=== PATIENT | male | born 1940 | race Caucasian/White ===

== ENCOUNTER → 2019-08-28 | Outpatient (REF) | payer MEDICARE ==
[2019-08-28 12:11] LABS: BASO % 0.4 % (0.0-1.0); EOS # 0.2 10^3/uL (0.0-0.5); EOS % 2.3 % (0.0-3.0); HEMATOCRIT 42.1 % (42.0-52.0); HEMOGLOBIN 14.4 g/dl (13.5-17.5); LYMPH # 2.3 10^3/uL (1.5-5.0); LYMPH % 32.5 % (24.0-44.0); MEAN CORPUSCULAR HEMOGLOBIN 33.3 pg (27.0-33.0); MEAN CORPUSCULAR HGB CONC 34.2 g/dl (32.0-36.5); MEAN CORPUSCULAR VOLUME 97.5 fl (80.0-96.0); MONO # 0.5 10^3/uL (0.0-0.8); MONO % 7.1 % (0.0-5.0); PLATELET COUNT, AUTOMATED 133 10^3/uL (150-450); RED BLOOD COUNT 4.32 10^6/uL (4.30-6.10)
[2019-08-28 12:52] LABS: ALBUMIN 3.9 GM/DL (3.2-5.2); BILIRUBIN,TOTAL 0.8 MG/DL (0.2-1.0); CALCIUM LEVEL 9.5 MG/DL (8.8-10.2); CHOLESTEROL RISK RATIO 4.2 (<5); CREATININE FOR GFR 1.31 MG/DL (0.70-1.30); GLOMERULAR FILTRATION RATE 56.3 (>42); POTASSIUM SERUM 3.9 MEQ/L (3.5-5.1); THYROID STIMULATING HORMONE 0.949 uIU/ML (0.358-3.740); TOTAL 25(OH) VITAMIN D 18.6 NG/ML (30.0-100.0); TOTAL PROTEIN 7.4 GM/DL (6.4-8.2)
[2019-08-28 13:09] LABS: HEMOGLOBIN A1c 5.3 %
== END ==
LOC: M LAB REF 11:39
PROVIDERS: ATTEND Family Medicine
DX: E11.65 Type 2 diabetes mellitus with hyperglycemia (principal)

== ENCOUNTER → 2019-11-14 | Outpatient (REF) | payer MEDICARE ==
[2019-11-14 13:24] LABS: ALBUMIN 3.8 GM/DL (3.2-5.2); BILIRUBIN,TOTAL 0.6 MG/DL (0.2-1.0); CALCIUM LEVEL 9.1 MG/DL (8.8-10.2); CHOLESTEROL RISK RATIO 3.725 (<5); CREATININE FOR GFR 1.38 MG/DL (0.70-1.30); GLOMERULAR FILTRATION RATE 53.1 (>42); POTASSIUM SERUM 4.5 MEQ/L (3.5-5.1); THYROID STIMULATING HORMONE 1.07 uIU/ML (0.358-3.740); TOTAL PROTEIN 7.3 GM/DL (6.4-8.2)
[2019-11-14 13:41] LABS: TOTAL 25(OH) VITAMIN D 19.6 NG/ML (30.0-100.0)
== END ==
LOC: M LAB REF 12:15
PROVIDERS: ATTEND Family Medicine Addiction Medicine
DX: E11.65 Type 2 diabetes mellitus with hyperglycemia (principal)

== ENCOUNTER → 2020-01-13 | Outpatient (CLI) | payer SELFPAY | LOC: M LABSMTC 15:40 | PROVIDERS: ATTEND Pediatrics | DX: Z20.828 Contact with and (suspected) exposure to other viral communicable diseases (principal) ==

== ENCOUNTER → 2020-02-14 | Outpatient (REF) | payer MEDICARE ==
[2020-02-14 17:57] LABS: ALBUMIN 3.7 GM/DL (3.2-5.2); BILIRUBIN,TOTAL 0.6 MG/DL (0.2-1.0); CALCIUM LEVEL 8.8 MG/DL (8.8-10.2); CHOLESTEROL RISK RATIO 3.074 (<5); CREATININE FOR GFR 1.7 MG/DL (0.70-1.30); GLOMERULAR FILTRATION RATE 41.7 (>42); POTASSIUM SERUM 4.9 MEQ/L (3.5-5.1); THYROID STIMULATING HORMONE 1.12 uIU/ML (0.358-3.740); TOTAL 25(OH) VITAMIN D 43.4 NG/ML (30.0-100.0); TOTAL PROTEIN 6.7 GM/DL (6.4-8.2)
== END ==
LOC: M LAB REF 16:32
PROVIDERS: ATTEND Family Medicine Addiction Medicine
DX: E55.9 Vitamin D deficiency, unspecified (principal); E11.65 Type 2 diabetes mellitus with hyperglycemia

== ENCOUNTER → 2020-03-20 | Outpatient (REF) | payer MEDICARE ==
[2020-03-20 17:25] LABS: CALCIUM LEVEL 9.2 MG/DL (8.8-10.2); CREATININE FOR GFR 1.32 MG/DL (0.70-1.30); GLOMERULAR FILTRATION RATE 55.7 (>42); POTASSIUM SERUM 4.7 MEQ/L (3.5-5.1)
== END ==
LOC: M LAB REF 16:27
PROVIDERS: ATTEND Family Medicine Addiction Medicine
DX: I10 Essential (primary) hypertension (principal)

== ENCOUNTER → 2020-06-09 | Outpatient (REF) | payer MEDICARE ==
[2020-06-09 17:47] LABS: ALBUMIN 3.7 GM/DL (3.2-5.2); ALT/SGPT 15 U/L (12-78); BLOOD UREA NITROGEN 22 MG/DL (7-18); CALCIUM LEVEL 9.4 MG/DL (8.8-10.2); CARBON DIOXIDE LEVEL 30 MEQ/L (21-32); CHLORIDE LEVEL 107 MEQ/L (98-107); CHOLESTEROL LEVEL 152 MG/DL (<200); CHOLESTEROL RISK RATIO 2.533 (<5); CREATININE FOR GFR 1.04 MG/DL (0.70-1.30); GLOMERULAR FILTRATION RATE > 60.0 (>42); GLUCOSE, FASTING 95 MG/DL (70-100); HDL CHOLESTEROL 60 MG/DL (>40); LDL CHOLESTEROL 69 MG/DL (<100); NON-HDL-C 92 MG/DL; POTASSIUM SERUM 4.5 MEQ/L (3.5-5.1); SODIUM LEVEL 143 MEQ/L (136-145); THYROID STIMULATING HORMONE 0.608 uIU/ML (0.358-3.740); TOTAL PROTEIN 7.2 GM/DL (6.4-8.2); TRIGLYCERIDES LEVEL 113 MG/DL (<150)
[2020-06-09 18:14] LABS: HEMOGLOBIN A1c 5.3 %
== END ==
LOC: M LAB REF 16:20
PROVIDERS: ATTEND Family Medicine Addiction Medicine
DX: E11.69 Type 2 diabetes mellitus with other specified complication (principal)

== ENCOUNTER 2021-11-04 13:26 | Inpatient (IN) | payer MEDICARE ==
[~2021-11-04] VITALS: Ht 188 cm; Wt 112.8 kg
[2021-11-04] MEDS ORDERED: NS 3,070 ML in IV 1 EA IV ONE (13:50)
[2021-11-04] MEDS ORDERED: cefTRIAXone SOD 2 GM in D5W MINI-BAG PLUS 50 ML IV ONE (13:50)
[2021-11-04 14:06] LABS: HEMOGLOBIN 13.1 g/dl (13.5-17.5); MEAN CORPUSCULAR HEMOGLOBIN 33.5 pg (27.0-33.0); MEAN CORPUSCULAR HGB CONC 34.5 g/dl (32.0-36.5); MEAN CORPUSCULAR VOLUME 97.2 fl (80.0-96.0); PLATELET COUNT, AUTOMATED 152 10^3/uL (150-450); RED BLOOD COUNT 3.91 10^6/uL (4.30-6.10); WHITE BLOOD COUNT 29.9 10^3/uL (4.0-10.0)
[2021-11-04 14:50] LABS: ATYPICAL LYMPH 1 % (0-5); LYMPHOCYTES 1 % (16-44); MONOCYTES 2 % (0-5); NEUTROPHILS 51 % (28-66); PLATELET ESTIMATE NORMAL (NORMAL)
[2021-11-04 14:59] LABS: ACETAMINOPHEN LEVEL < 2.0 UG/ML (10.0-30.0); ALBUMIN 3.4 GM/DL (3.2-5.2); ALT/SGPT 40 U/L (12-78); BILIRUBIN,DIRECT 1.3 MG/DL (0.0-0.2); BILIRUBIN,TOTAL 3.9 MG/DL (0.2-1.0); BLOOD UREA NITROGEN 34 MG/DL (7-18); CALCIUM LEVEL 8.9 MG/DL (8.8-10.2); CARBON DIOXIDE LEVEL 21 MEQ/L (21-32); CHLORIDE LEVEL 104 MEQ/L (98-107); CREATININE FOR GFR 1.94 MG/DL (0.70-1.30); ETHYL ALCOHOL (ETHANOL) < 0.003 % (0.000-0.010); GLOMERULAR FILTRATION RATE 35.6 (>35); GLUCOSE, FASTING 119 MG/DL (70-100); POTASSIUM SERUM 4.5 MEQ/L (3.5-5.1); SALICYLATE LEVEL < 1.7 MG/DL (5.0-30.0); SODIUM LEVEL 135 MEQ/L (136-145); TOTAL PROTEIN 7.2 GM/DL (6.4-8.2)
[2021-11-04 15:00] LABS: CK-MB VALUE MASS 5.3 NG/ML (<3.6); MB/CK RELATIVE INDEX 0.27 (< OR =4)
[2021-11-04 15:07] LABS: OSMOLALITY SERUM 299 MOSM/KG (280-301)
[2021-11-04 15:31] LABS: AMPHETAMINES LEVEL URINE NEGATIVE (NEGATIVE); BARBITURATES URINE NEGATIVE (NEGATIVE); BENZODIAZEPINES URINE NEGATIVE (NEGATIVE); CANNABINOIDS URINE NEGATIVE (NEGATIVE); COCAINE METABOLITE URINE NEGATIVE (NEGATIVE); METHADONE URINE NEGATIVE (NEGATIVE); OPIATES URINE NEGATIVE (NEGATIVE); PHENCYCLIDINE URINE NEGATIVE (NEGATIVE)
[2021-11-04] MEDS ORDERED: ACETAMINOPHEN TAB 650MG DOSE (2X325MG) PO ONE (15:50)
[2021-11-04 16:47] LABS: CK-MB VALUE MASS 5.7 NG/ML (<3.6); MB/CK RELATIVE INDEX 0.27 (< OR =4)
[2021-11-04] MEDS ORDERED: VANCOMYCIN HCL 2,000 MG in D5W 500 ML IV ONE (17:00)
[2021-11-04] MEDS ORDERED: VANCOMYCIN HCL 1,000 MG, VIAL MATE ADAPTER 1 EACH in NS 250 ML IV ONE ×6 (17:30)
[2021-11-04 18:37] LABS: CK-MB VALUE MASS 4.7 NG/ML (<3.6); MB/CK RELATIVE INDEX 0.23 (< OR =4)
[2021-11-04] MEDS ORDERED: NALOXONE INJ 0.4MG/1ML VIAL (J2310 PER 1MG) IV PRN (19:00)
[2021-11-04] MEDS ORDERED: PERCOCET 5MG/325MG TAB PO ONE (19:00)
[2021-11-04] MEDS ORDERED: ACETAMINOPHEN 500 MG TAB PO ONE (19:00)
[2021-11-04] MEDS ORDERED: PERCOCET 5MG/325MG TAB PO PRN ×3 (19:00)
[2021-11-04] MEDS ORDERED: HOME MED LIST COMPLETE! XX SCH (19:05)
[2021-11-04] MEDS ORDERED: AMLO1TAB25 PO (19:05)
[2021-11-04] MEDS ORDERED: LOVA20TA2 PO (19:05)
[2021-11-04] MEDS ORDERED: pt comment (19:05)
[2021-11-04 20:10] VITALS: BP 126/80
[2021-11-04] MEDS: LIDOCAINE 5% (LIDODERM) PATCH TD SCH (20:27)
[2021-11-04] MEDS: HEPARIN SOD (PORCINE) 5000UNITS/ML 1ML VIAL/SYRINGE SQ SCH (20:27)
[2021-11-04] MEDS: NS 1,000 ML IV SCH (20:27)
[2021-11-04 22:24] LABS: C REACTIVE PROTEIN QUANTITATIV 23.1 MG/DL (0.00-0.30); CALCIUM LEVEL 7.7 MG/DL (8.8-10.2); CREATININE FOR GFR 1.66 MG/DL (0.70-1.30); GLOMERULAR FILTRATION RATE 42.6 (>35); POTASSIUM SERUM 3.6 MEQ/L (3.5-5.1)
[2021-11-04 22:31] LABS: CK-MB VALUE MASS 4.2 NG/ML (<3.6); MB/CK RELATIVE INDEX 0.16 (< OR =4)
[2021-11-04] MEDS: ANALGESIC BALM CRM 3OZ TOP SCH (22:52)
[2021-11-04 22:54] VITALS: BP 102/58
[2021-11-04] MEDS: PIPERACILLIN/TAZOBACTAM SOD 2.25 GM in D5W MINI-BAG PLUS 50 ML IV SCH (23:01)
[2021-11-05] VITALS (8 sets, daily range): BP systolic 94–122; BP diastolic 46–76; O2SAT 88
[2021-11-05 04:01] LABS: CK-MB VALUE MASS 3.2 NG/ML (<3.6); MB/CK RELATIVE INDEX 0.13 (< OR =4)
[2021-11-05] MEDS: NS 1,000 ML IV SCH ×6 (05:29→19:35)
[2021-11-05] MEDS: PIPERACILLIN/TAZOBACTAM SOD 2.25 GM in D5W MINI-BAG PLUS 50 ML IV SCH ×2 (05:29→12:13)
[2021-11-05] MEDS ORDERED: VANCOMYCIN HCL 1,000 MG, VIAL MATE ADAPTER 1 EACH in NS 250 ML IV SCH (06:00)
[2021-11-05] MEDS ORDERED: HYDROMORPHONE HCL 0.5 MG/ 0.5 ML SYRINGE (J1170 PER 1) IV ONE ×2 (07:15→13:00)
[2021-11-05] MEDS ORDERED: NS 1,000 ML IV ONE (07:20)
[2021-11-05 07:25] LABS: HEMOGLOBIN 11.2 g/dl (13.5-17.5); MEAN CORPUSCULAR HEMOGLOBIN 32.8 pg (27.0-33.0); MEAN CORPUSCULAR HGB CONC 32.9 g/dl (32.0-36.5); MEAN CORPUSCULAR VOLUME 99.7 fl (80.0-96.0); PLATELET COUNT, AUTOMATED 129 10^3/uL (150-450); RED BLOOD COUNT 3.41 10^6/uL (4.30-6.10); WHITE BLOOD COUNT 19.8 10^3/uL (4.0-10.0)
[2021-11-05 07:31] LABS: ALBUMIN 2.5 GM/DL (3.2-5.2); BILIRUBIN,TOTAL 5.7 MG/DL (0.2-1.0); CALCIUM LEVEL 7.8 MG/DL (8.8-10.2); CK-MB VALUE MASS 3.2 NG/ML (<3.6); CREATININE FOR GFR 2.06 MG/DL (0.70-1.30); GLOMERULAR FILTRATION RATE 33.2 (>35); MAGNESIUM LEVEL 1.7 MG/DL (1.8-2.4); MB/CK RELATIVE INDEX 0.13 (< OR =4); TOTAL PROTEIN 5.9 GM/DL (6.4-8.2)
[2021-11-05 08:09] LABS: ATYPICAL LYMPH 3 % (0-5); LYMPHOCYTES 4 % (16-44); METAMYELOCYTES 1 % (0-0); MONOCYTES 2 % (0-5); MYELOCYTES 1 % (0-0); NEUTROPHILS 46 % (28-66)
[2021-11-05 08:10] LABS: GIANT PLATELETS 1+
[2021-11-05 08:11] LABS: PLATELET ESTIMATE DECREASED (NORMAL)
[2021-11-05] MEDS ORDERED: MAG SULF 1GM/100ML (MAG RUN) 1 GM in IV 1 EA IV ONE (08:30)
[2021-11-05] MEDS: VANCOMYCIN HCL 750 MG, VIAL MATE ADAPTER 1 EACH in D5W 250 ML IV SCH ×2 (09:06→10:20)
[2021-11-05] MEDS: ANALGESIC BALM CRM 3OZ TOP SCH ×4 (09:08→21:00)
[2021-11-05] MEDS: HEPARIN SOD (PORCINE) 5000UNITS/ML 1ML VIAL/SYRINGE SQ SCH ×2 (09:14→21:43)
[2021-11-05] MEDS: **NOTE PATIENT COMMENT** MISC XX SCH (09:14)
[2021-11-05 10:23] LABS: CK-MB VALUE MASS 3.7 NG/ML (<3.6); MB/CK RELATIVE INDEX 0.14 (< OR =4)
[2021-11-05] MEDS ORDERED: NALOXONE INJ 0.4MG/1ML VIAL (J2310 PER 1MG) IV STA (11:35)
[2021-11-05] MEDS ORDERED: NS 4,000 ML IV ONE (11:35)
[2021-11-05 12:14] LABS: HEMATOCRIT 32.1 % (42.0-52.0); HEMOGLOBIN 10.9 g/dl (13.5-17.5); MEAN CORPUSCULAR HEMOGLOBIN 33.4 pg (27.0-33.0); MEAN CORPUSCULAR VOLUME 98.5 fl (80.0-96.0); PLATELET COUNT, AUTOMATED 122 10^3/uL (150-450); RED BLOOD COUNT 3.26 10^6/uL (4.30-6.10); WHITE BLOOD COUNT 19.5 10^3/uL (4.0-10.0)
[2021-11-05 12:19] LABS: ABG BASE EXCESS -6.2 (-2.0-2.0); ABG HCO3 17.2 MEQ/L (22.0-26.0); ABG O2 SATURATION 89.9 % (95.0-99.0); ABG PARTIAL PRESSURE CO2 27.9 mmHg (35.0-45.0); ABG PARTIAL PRESSURE O2 56.8 mmHg (75.0-100.0); ABG STANDARD HCO3 19.2 MEQ/L (22.0-26.0); ABG TOTAL CO2 18.1 MEQ/L (23.0-31.0); ABG pH (ARTERIAL) 7.408 UNITS (7.350-7.450)
[2021-11-05 12:47] LABS: ALBUMIN 2.4 GM/DL (3.2-5.2); BILIRUBIN,TOTAL 5.9 MG/DL (0.2-1.0); CALCIUM LEVEL 7.7 MG/DL (8.8-10.2); CREATININE FOR GFR 2.08 MG/DL (0.70-1.30); GLOMERULAR FILTRATION RATE 32.9 (>35); POTASSIUM SERUM 4.1 MEQ/L (3.5-5.1); TOTAL PROTEIN 5.6 GM/DL (6.4-8.2)
[2021-11-05 12:55] LABS: ATYPICAL LYMPH 2 % (0-5); C REACTIVE PROTEIN QUANTITATIV 34.7 MG/DL (0.00-0.30); LYMPHOCYTES 5 % (16-44); MONOCYTES 3 % (0-5); NEUTROPHILS 75 % (28-66)
[2021-11-05 12:58] LABS: PLATELET CLUMPS SMALL AMT; PLATELET ESTIMATE DECREASED (NORMAL)
[2021-11-05 13:13] LABS: CK-MB VALUE MASS 3.3 NG/ML (<3.6); MB/CK RELATIVE INDEX 0.13 (< OR =4)
[2021-11-05] MEDS: ACETAMINOPHEN TAB 650MG DOSE (2X325MG) PO PRN (13:23)
[2021-11-05 15:16] LABS: CK-MB VALUE MASS 3.5 NG/ML (<3.6); MB/CK RELATIVE INDEX 0.16 (< OR =4)
[2021-11-05 16:40] LABS: HEMOGLOBIN A1c 5.3 %
[2021-11-05 17:59] LABS: HEPATITIS C VIRUS ABY INDEX < 0.0 INDEX (<0.8); HIV 1&2 SCREEN CENTAUR NEGATIVE (NEGATIVE)
[2021-11-05] MEDS: LIDOCAINE 5% (LIDODERM) PATCH TD SCH (21:43)
[2021-11-05] MEDS: IPRATROPIUM 0.5MG/ALBUTEROL 2.5MG INH SOL UD 3ML (DUONEB) NEB SCH ×2 (21:53→23:19)
[2021-11-05] MEDS ORDERED: FUROSEMIDE 40MG/4ML VIAL (J1940) IV ONE (22:30)
[2021-11-05] MEDS ORDERED: ALBUTEROL SULFATE 2.5 MG/0.5 ML INH NEB SOLN NEB PRN (22:45)
[2021-11-05] MEDS ORDERED: ACETAMINOPHEN 1000MG 100ML IV BTL (OFIRMEV) (J0131 PER 10MG) IV ONE (23:00)
[2021-11-06] VITALS (24 sets, daily range): BP systolic 100–142; BP diastolic 55–76; PULSE 87; O2SAT 88–97
[2021-11-06] MEDS: IPRATROPIUM 0.5MG/ALBUTEROL 2.5MG INH SOL UD 3ML (DUONEB) NEB SCH ×6 (03:17→23:15)
[2021-11-06 07:07] LABS: BASO % 0.2 % (0.0-1.0); EOS % 0.1 % (0.0-3.0); HEMATOCRIT 31.9 % (42.0-52.0); HEMOGLOBIN 10.4 g/dl (13.5-17.5); LYMPH # 0.5 10^3/uL (1.5-5.0); LYMPH % 3.4 % (24.0-44.0); MEAN CORPUSCULAR HEMOGLOBIN 32.6 pg (27.0-33.0); MEAN CORPUSCULAR HGB CONC 32.6 g/dl (32.0-36.5); MONO # 0.6 10^3/uL (0.0-0.8); MONO % 3.5 % (2.0-8.0); NEUTROPHILS # 14.6 10^3/uL (1.5-8.5); NEUTROPHILS % 91.9 % (36.0-66.0); PLATELET COUNT, AUTOMATED 119 10^3/uL (150-450); RED BLOOD COUNT 3.19 10^6/uL (4.30-6.10); WHITE BLOOD COUNT 15.9 10^3/uL (4.0-10.0)
[2021-11-06 07:39] LABS: ALBUMIN 2.1 GM/DL (3.2-5.2); BILIRUBIN,TOTAL 5.2 MG/DL (0.2-1.0); CALCIUM LEVEL 7.5 MG/DL (8.8-10.2); CREATININE FOR GFR 1.97 MG/DL (0.70-1.30); POTASSIUM SERUM 3.4 MEQ/L (3.5-5.1); TOTAL PROTEIN 5.3 GM/DL (6.4-8.2)
[2021-11-06] MEDS: VANCOMYCIN HCL 750 MG, VIAL MATE ADAPTER 1 EACH in D5W 250 ML IV SCH ×2 (08:31→09:54)
[2021-11-06] MEDS ORDERED: SODIUM BICARBONATE 325 MG TAB PO SCH (09:00)
[2021-11-06] MEDS ORDERED: POTASSIUM CHLORIDE 10MEQ SR TABLET PO SCH (09:00)
[2021-11-06] MEDS: **NOTE PATIENT COMMENT** MISC XX SCH (09:00)
[2021-11-06] MEDS ORDERED: NITROGLYCERIN 0.4 MG SUBL TABLET SL STA ×2 (09:40→10:10)
[2021-11-06] MEDS ORDERED: NITROGLYCERIN 0.4 MG SUBL TABLET SL PRN (09:50)
[2021-11-06] MEDS: ANALGESIC BALM CRM 3OZ TOP SCH ×4 (09:57→22:08)
[2021-11-06] MEDS: HEPARIN SOD (PORCINE) 5000UNITS/ML 1ML VIAL/SYRINGE SQ SCH ×2 (09:58→22:09)
[2021-11-06] MEDS ORDERED: MORPHINE 2 MG/ML 1ML VIAL IV ONE (10:00)
[2021-11-06] MEDS ORDERED: PROMETHAZINE 25MG/ML 1ML VIAL IV ONE (10:30)
[2021-11-06 10:50] LABS: PLATELET COUNT, AUTOMATED 129 10^3/uL (150-450)
[2021-11-06 11:00] LABS: INR 1.22; PROTHROMBIN TIME 15.8 SECONDS (12.7-14.5)
[2021-11-06] MEDS ORDERED: SODIUM BICARBONATE 150 MEQ in STERILE WATER LITER BAG 1,000 ML IV SCH (11:00)
[2021-11-06] MEDS ORDERED: FUROSEMIDE 100MG/10ML VIAL (J1940) IV ONE (11:00)
[2021-11-06 11:01] LABS: FIBRINOGEN 815 MG/DL (268-480); PARTIAL THROMBOPLASTIN TIME 46.4 SECONDS (25.9-37.0)
[2021-11-06 11:26] LABS: CK-MB VALUE MASS 2.8 NG/ML (<3.6); MB/CK RELATIVE INDEX 0.22 (< OR =4)
[2021-11-06 11:39] LABS: D-DIMER QUANT > 4000 ng/ml (<500)
[2021-11-06 11:49] LABS: ABG BASE EXCESS -11.1 (-2.0-2.0); ABG HCO3 13.6 MEQ/L (22.0-26.0); ABG O2 SATURATION 94.9 % (95.0-99.0); ABG PARTIAL PRESSURE CO2 27.4 mmHg (35.0-45.0); ABG STANDARD HCO3 15.7 MEQ/L (22.0-26.0); ABG TOTAL CO2 14.5 MEQ/L (23.0-31.0); ABG pH (ARTERIAL) 7.314 UNITS (7.350-7.450)
[2021-11-06] MEDS: PANTOPRAZOLE 40MG VIAL IV SCH ×2 (11:49→22:08)
[2021-11-06] MEDS ORDERED: GI COCKTAIL 50ML BTL(HYOSCYAMINE/MAALOX/LIDOCAINE VISCOUS)(1:3:1) PO ONE (12:00)
[2021-11-06] MEDS ORDERED: GLUCAGON INJ 1MG VIAL SC PRN (12:30)
[2021-11-06] MEDS ORDERED: GLUCOSE 4GM CHEW TABLET PO PRN (12:30)
[2021-11-06] MEDS ORDERED: DEXTROSE 50% 50 ML SYRINGE IV PRN (12:30)
[2021-11-06] MEDS: SIMETHICONE 80MG CHEW TAB PO SCH ×3 (14:09→22:09)
[2021-11-06] MEDS ORDERED: BISACODYL 10 MG SUPP PR ONE (14:30)
[2021-11-06 18:11] LABS: CALCIUM LEVEL 8.2 MG/DL (8.8-10.2); CREATININE FOR GFR 1.95 MG/DL (0.70-1.30); GLOMERULAR FILTRATION RATE 35.4 (>35); POTASSIUM SERUM 3.2 MEQ/L (3.5-5.1)
[2021-11-06] MEDS ORDERED: CALCIUM GLUCONATE 1,000 MG in D5W MINI-BAG PLUS 100 ML IV ONE (20:00)
[2021-11-06] MEDS ORDERED: KCL 10MEQ/100ML SWI (KRUN) 10 MEQ in IV 1 EA IV ONE ×2 (20:05→21:00)
[2021-11-06] MEDS: BISACODYL 10 MG SUPP PR SCH (22:08)
[2021-11-06] MEDS: LIDOCAINE 5% (LIDODERM) PATCH TD SCH (22:26)
[2021-11-07] VITALS (29 sets, daily range): BP systolic 108–151; BP diastolic 55–89; O2SAT 93–99
[2021-11-07] MEDS ORDERED: LORazepam 2 MG TAB PO PRN (01:00)
[2021-11-07] MEDS: LORazepam 2 MG/ML VIAL IV PRN ×2 (02:31→03:46)
[2021-11-07] MEDS: IPRATROPIUM 0.5MG/ALBUTEROL 2.5MG INH SOL UD 3ML (DUONEB) NEB SCH ×6 (03:09→23:17)
[2021-11-07] MEDS ORDERED: OLANZapine INTRAMUSCULAR 10MG VIAL IM ONE (04:05)
[2021-11-07 06:51] LABS: BASO % 0.1 % (0.0-1.0); EOS # 0.1 10^3/uL (0.0-0.5); EOS % 0.5 % (0.0-3.0); HEMATOCRIT 32.3 % (42.0-52.0); HEMOGLOBIN 10.7 g/dl (13.5-17.5); LYMPH # 0.8 10^3/uL (1.5-5.0); LYMPH % 6.7 % (24.0-44.0); MEAN CORPUSCULAR HEMOGLOBIN 32.7 pg (27.0-33.0); MEAN CORPUSCULAR HGB CONC 33.1 g/dl (32.0-36.5); MEAN CORPUSCULAR VOLUME 98.8 fl (80.0-96.0); MONO # 0.5 10^3/uL (0.0-0.8); MONO % 4.8 % (2.0-8.0); NEUTROPHILS # 9.7 10^3/uL (1.5-8.5); NEUTROPHILS % 87.2 % (36.0-66.0); PLATELET COUNT, AUTOMATED 150 10^3/uL (150-450); RED BLOOD COUNT 3.27 10^6/uL (4.30-6.10); WHITE BLOOD COUNT 11.2 10^3/uL (4.0-10.0)
[2021-11-07 07:15] LABS: CREATININE FOR GFR 1.96 MG/DL (0.70-1.30); GLOMERULAR FILTRATION RATE 35.2 (>35); MAGNESIUM LEVEL 1.9 MG/DL (1.8-2.4); POTASSIUM SERUM 3.1 MEQ/L (3.5-5.1)
[2021-11-07 07:30] LABS: ABG BASE EXCESS -3.5 (-2.0-2.0); ABG HCO3 18.6 MEQ/L (22.0-26.0); ABG O2 SATURATION 95.7 % (95.0-99.0); ABG PARTIAL PRESSURE CO2 25.3 mmHg (35.0-45.0); ABG PARTIAL PRESSURE O2 78.3 mmHg (75.0-100.0); ABG STANDARD HCO3 21.5 MEQ/L (22.0-26.0); ABG TOTAL CO2 19.4 MEQ/L (23.0-31.0); ABG pH (ARTERIAL) 7.484 UNITS (7.350-7.450)
[2021-11-07 07:52] LABS: CK-MB VALUE MASS 2.3 NG/ML (<3.6); MB/CK RELATIVE INDEX 0.44 (< OR =4)
[2021-11-07] MEDS ORDERED: DIGOXIN INJ 0.5 MG/2 ML AMP (J1160) IV ONE ×2 (08:00→14:00)
[2021-11-07] MEDS ORDERED: OXAZEPAM 10MG CAP PO ONE (08:00)
[2021-11-07] MEDS: VANCOMYCIN HCL 750 MG, VIAL MATE ADAPTER 1 EACH in D5W 250 ML IV SCH ×2 (08:20→10:14)
[2021-11-07] MEDS ORDERED: LEVALBUTEROL 1.25 MG/0.5 ML CONCENTRATE NEB NEB ONE ×2 (08:30→09:00)
[2021-11-07] MEDS ORDERED: FUROSEMIDE 40MG/4ML VIAL (J1940) IV ONE (09:00)
[2021-11-07] MEDS: **NOTE PATIENT COMMENT** MISC XX SCH (09:00)
[2021-11-07] MEDS ORDERED: POTASSIUM CHLORIDE 10MEQ SR TABLET PO ONE (10:00)
[2021-11-07] MEDS ORDERED: KCL 10MEQ/100ML SWI (KRUN) 10 MEQ in IV 1 EA IV ONE (10:00)
[2021-11-07] MEDS: PANTOPRAZOLE 40MG VIAL IV SCH ×2 (10:12→20:29)
[2021-11-07] MEDS: HEPARIN SOD (PORCINE) 5000UNITS/ML 1ML VIAL/SYRINGE SQ SCH ×2 (10:13→20:34)
[2021-11-07] MEDS: THIAMINE 200MG 2ML VIAL IV SCH (10:13)
[2021-11-07] MEDS: SIMETHICONE 80MG CHEW TAB PO SCH ×4 (10:15→20:35)
[2021-11-07] MEDS: BISACODYL 10 MG SUPP PR SCH ×2 (10:16→20:35)
[2021-11-07] MEDS: ANALGESIC BALM CRM 3OZ TOP SCH ×4 (10:17→20:34)
[2021-11-07] MEDS: cefTRIAXone SOD 2 GM in D5W MINI-BAG PLUS 50 ML IV SCH (12:11)
[2021-11-07] MEDS: LIDOCAINE 5% (LIDODERM) PATCH TD SCH (20:29)
[2021-11-07] MEDS: RAMELTEON 8 MG TAB (ROZEREM) PO SCH (20:35)
[2021-11-07] MEDS: ACETAMINOPHEN TAB 650MG DOSE (2X325MG) PO PRN (20:35)
[2021-11-07] MEDS: ALBUTEROL SULFATE 2.5 MG/0.5 ML INH NEB SOLN NEB PRN (21:13)
[2021-11-07] MEDS ORDERED: methylPREDNISolone 125MG 2ML VIAL IV ONE (21:40)
[2021-11-07 21:44] LABS: ABG BASE EXCESS -4.3 (-2.0-2.0); ABG HCO3 19.5 MEQ/L (22.0-26.0); ABG O2 SATURATION 96.9 % (95.0-99.0); ABG PARTIAL PRESSURE CO2 31.6 mmHg (35.0-45.0); ABG PARTIAL PRESSURE O2 91.6 mmHg (75.0-100.0); ABG STANDARD HCO3 20.9 MEQ/L (22.0-26.0); ABG TOTAL CO2 20.5 MEQ/L (23.0-31.0); ABG pH (ARTERIAL) 7.408 UNITS (7.350-7.450)
[2021-11-07] MEDS ORDERED: MAG SULF 1GM/100ML (MAG RUN) 1 GM in IV 1 EA IV ONE (22:55)
[2021-11-08] VITALS (23 sets, daily range): BP systolic 137–157; BP diastolic 65–109; O2SAT 92–99
[2021-11-08] MEDS: IPRATROPIUM 0.5MG/ALBUTEROL 2.5MG INH SOL UD 3ML (DUONEB) NEB SCH ×6 (03:37→23:17)
[2021-11-08 06:20] LABS: HEMATOCRIT 35.2 % (42.0-52.0); HEMOGLOBIN 11.5 g/dl (13.5-17.5); MEAN CORPUSCULAR HGB CONC 32.7 g/dl (32.0-36.5); MEAN CORPUSCULAR VOLUME 98.1 fl (80.0-96.0); PLATELET COUNT, AUTOMATED 163 10^3/uL (150-450); RED BLOOD COUNT 3.59 10^6/uL (4.30-6.10); WHITE BLOOD COUNT 9.6 10^3/uL (4.0-10.0)
[2021-11-08 07:07] LABS: C REACTIVE PROTEIN QUANTITATIV 23.1 MG/DL (0.00-0.30); CALCIUM LEVEL 8.4 MG/DL (8.8-10.2); CREATININE FOR GFR 1.77 MG/DL (0.70-1.30); DIGOXIN LEVEL 0.5 NG/ML (0.5-2.0); GLOMERULAR FILTRATION RATE 39.6 (>35); MAGNESIUM LEVEL 2.1 MG/DL (1.8-2.4); POTASSIUM SERUM 3.4 MEQ/L (3.5-5.1)
[2021-11-08] MEDS ORDERED: DIGOXIN INJ 0.5 MG/2 ML AMP (J1160) IV STA (07:29)
[2021-11-08] MEDS ORDERED: KCL 10MEQ/100ML SWI (KRUN) 10 MEQ in IV 1 EA IV ONE (07:30)
[2021-11-08] MEDS ORDERED: POTASSIUM CHLORIDE 10% LIQ 20 MEQ/15 ML UDC PO ONE (07:30)
[2021-11-08] MEDS ORDERED: methylPREDNISolone 125MG 2ML VIAL IV ONE (07:35)
[2021-11-08] MEDS: IPRATROPIUM 0.02% SOLN 0.5MG 2.5ML NEB INH SCH ×5 (07:39→23:17)
[2021-11-08] MEDS: LEVALBUTEROL 1.25 MG/0.5 ML CONCENTRATE NEB INH SCH ×5 (07:39→23:16)
[2021-11-08 07:55] LABS: LYMPHOCYTES 5 % (16-44); NEUTROPHILS 91 % (28-66); PLATELET ESTIMATE NORMAL (NORMAL)
[2021-11-08] MEDS: **NOTE PATIENT COMMENT** MISC XX SCH (09:00)
[2021-11-08] MEDS: PANTOPRAZOLE 40MG VIAL IV SCH ×2 (09:54→21:07)
[2021-11-08] MEDS: SIMETHICONE 80MG CHEW TAB PO SCH ×4 (09:55→20:36)
[2021-11-08] MEDS: KCL 20MEQ IN 0.45NS 1000ML 1,000 ML IV SCH ×2 (09:56→21:13)
[2021-11-08] MEDS: HEPARIN SOD (PORCINE) 5000UNITS/ML 1ML VIAL/SYRINGE SQ SCH ×2 (09:56→21:07)
[2021-11-08] MEDS: BISACODYL 10 MG SUPP PR SCH ×2 (09:57→21:07)
[2021-11-08] MEDS: ANALGESIC BALM CRM 3OZ TOP SCH ×4 (09:57→21:08)
[2021-11-08] MEDS: THIAMINE 200MG 2ML VIAL IV SCH (10:47)
[2021-11-08] MEDS: cefTRIAXone SOD 2 GM in D5W MINI-BAG PLUS 50 ML IV SCH (11:13)
[2021-11-08] MEDS ORDERED: BISACODYL 10 MG SUPP PR ONE (11:15)
[2021-11-08] MEDS: RAMELTEON 8 MG TAB (ROZEREM) PO SCH (20:37)
[2021-11-08] MEDS: LIDOCAINE 5% (LIDODERM) PATCH TD SCH (21:09)
[2021-11-08] MEDS: ALBUTEROL SULFATE 2.5 MG/0.5 ML INH NEB SOLN NEB PRN (21:15)
[2021-11-09] VITALS (21 sets, daily range): BP systolic 136–163; BP diastolic 72–78; O2SAT 91–99
[2021-11-09] MEDS: IPRATROPIUM 0.02% SOLN 0.5MG 2.5ML NEB INH SCH ×5 (02:59→19:58)
[2021-11-09] MEDS: LEVALBUTEROL 1.25 MG/0.5 ML CONCENTRATE NEB INH SCH ×5 (02:59→19:58)
[2021-11-09 05:41] LABS: HEMATOCRIT 31.2 % (42.0-52.0); HEMOGLOBIN 10.5 g/dl (13.5-17.5); MEAN CORPUSCULAR HEMOGLOBIN 33.2 pg (27.0-33.0); MEAN CORPUSCULAR HGB CONC 33.7 g/dl (32.0-36.5); MEAN CORPUSCULAR VOLUME 98.7 fl (80.0-96.0); PLATELET COUNT, AUTOMATED 186 10^3/uL (150-450); RED BLOOD COUNT 3.16 10^6/uL (4.30-6.10); WHITE BLOOD COUNT 11.8 10^3/uL (4.0-10.0)
[2021-11-09 05:57] LABS: ANISOCYTOSIS 1+; ATYPICAL LYMPH 1 % (0-5); LYMPHOCYTES 8 % (16-44); METAMYELOCYTES 2 % (0-0); MONOCYTES 5 % (0-5); MYELOCYTES 1 % (0-0); NEUTROPHILS 83 % (28-66); PLATELET ESTIMATE NORMAL (NORMAL); POLYCHROMASIA 1+
[2021-11-09 06:21] LABS: CALCIUM LEVEL 8.4 MG/DL (8.8-10.2); CREATININE FOR GFR 1.66 MG/DL (0.70-1.30); DIGOXIN LEVEL 0.8 NG/ML (0.5-2.0); GLOMERULAR FILTRATION RATE 42.6 (>35); MAGNESIUM LEVEL 2.3 MG/DL (1.8-2.4); POTASSIUM SERUM 3.6 MEQ/L (3.5-5.1)
[2021-11-09] MEDS: KCL 20MEQ IN 0.45NS 1000ML 1,000 ML IV SCH ×2 (06:58→20:47)
[2021-11-09] MEDS: IPRATROPIUM 0.5MG/ALBUTEROL 2.5MG INH SOL UD 3ML (DUONEB) NEB SCH (08:00)
[2021-11-09] MEDS: SIMETHICONE 80MG CHEW TAB PO SCH ×4 (10:31→20:47)
[2021-11-09] MEDS: THIAMINE 200MG 2ML VIAL IV SCH (10:32)
[2021-11-09] MEDS: PANTOPRAZOLE 40MG VIAL IV SCH ×2 (10:32→20:47)
[2021-11-09] MEDS: HEPARIN SOD (PORCINE) 5000UNITS/ML 1ML VIAL/SYRINGE SQ SCH ×2 (10:33→20:48)
[2021-11-09] MEDS: cefTRIAXone SOD 2 GM in D5W MINI-BAG PLUS 50 ML IV SCH (10:34)
[2021-11-09] MEDS: BISACODYL 10 MG SUPP PR SCH ×2 (10:35→23:40)
[2021-11-09] MEDS: ANALGESIC BALM CRM 3OZ TOP SCH ×4 (10:35→20:53)
[2021-11-09] MEDS: **NOTE PATIENT COMMENT** MISC XX SCH (10:36)
[2021-11-09] MEDS ORDERED: PILL CUTTER 1 EACH XX ONE (10:38)
[2021-11-09] MEDS: ALBUTEROL SULFATE 2.5 MG/0.5 ML INH NEB SOLN NEB PRN (12:19)
[2021-11-09 13:11] LABS: ANTINUCLEAR ANTIBODIES DIRECT Negative (Negative)
[2021-11-09] MEDS: RAMELTEON 8 MG TAB (ROZEREM) PO SCH (20:47)
[2021-11-09] MEDS: LIDOCAINE 5% (LIDODERM) PATCH TD SCH (21:00)
[2021-11-10] VITALS (20 sets, daily range): BP systolic 128–139; BP diastolic 68–80; O2SAT 87–98
[2021-11-10 05:22] LABS: HEMATOCRIT 32.8 % (42.0-52.0); HEMOGLOBIN 10.6 g/dl (13.5-17.5); MEAN CORPUSCULAR HEMOGLOBIN 32.7 pg (27.0-33.0); MEAN CORPUSCULAR HGB CONC 32.3 g/dl (32.0-36.5); MEAN CORPUSCULAR VOLUME 101.2 fl (80.0-96.0); PLATELET COUNT, AUTOMATED 234 10^3/uL (150-450); RED BLOOD COUNT 3.24 10^6/uL (4.30-6.10); WHITE BLOOD COUNT 9.1 10^3/uL (4.0-10.0)
[2021-11-10 05:48] LABS: ATYPICAL LYMPH 3 % (0-5); LYMPHOCYTES 10 % (16-44); MONOCYTES 7 % (0-5); MYELOCYTES 1 % (0-0); NEUTROPHILS 78 % (28-66); PLATELET ESTIMATE NORMAL (NORMAL)
[2021-11-10 05:49] LABS: ANISOCYTOSIS 1+
[2021-11-10 06:09] LABS: C REACTIVE PROTEIN QUANTITATIV 7.06 MG/DL (0.00-0.30); CALCIUM LEVEL 8.8 MG/DL (8.8-10.2); CREATININE FOR GFR 1.65 MG/DL (0.70-1.30); DIGOXIN LEVEL 0.7 NG/ML (0.5-2.0); GLOMERULAR FILTRATION RATE 42.9 (>35); MAGNESIUM LEVEL 2.3 MG/DL (1.8-2.4); POTASSIUM SERUM 4.2 MEQ/L (3.5-5.1)
[2021-11-10] MEDS: KCL 20MEQ IN 0.45NS 1000ML 1,000 ML IV SCH (06:16)
[2021-11-10] MEDS ORDERED: LEVALBUTEROL 1.25 MG/0.5 ML CONCENTRATE NEB INH SCH (08:00)
[2021-11-10] MEDS: **NOTE PATIENT COMMENT** MISC XX SCH (09:00)
[2021-11-10] MEDS: PANTOPRAZOLE 40MG VIAL IV SCH (09:21)
[2021-11-10] MEDS: SIMETHICONE 80MG CHEW TAB PO SCH ×4 (09:22→22:52)
[2021-11-10] MEDS: HEPARIN SOD (PORCINE) 5000UNITS/ML 1ML VIAL/SYRINGE SQ SCH ×2 (09:22→22:50)
[2021-11-10] MEDS: ANALGESIC BALM CRM 3OZ TOP SCH ×4 (09:23→22:52)
[2021-11-10] MEDS: cefTRIAXone SOD 2 GM in D5W MINI-BAG PLUS 50 ML IV SCH (11:47)
[2021-11-10] MEDS: BISACODYL 10 MG SUPP PR SCH ×2 (14:26→22:51)
[2021-11-10] MEDS: LIDOCAINE 5% (LIDODERM) PATCH TD SCH (22:51)
[2021-11-10] MEDS: PANTOPRAZOLE 40MG TAB (PROTONIX) PO SCH (22:51)
[2021-11-10] MEDS: RAMELTEON 8 MG TAB (ROZEREM) PO SCH (22:52)
[2021-11-11] VITALS (18 sets, daily range): BP systolic 111–136; BP diastolic 61–71; O2SAT 93–100
[2021-11-11 06:09] LABS: HEMATOCRIT 32.2 % (42.0-52.0); HEMOGLOBIN 10.3 g/dl (13.5-17.5); MEAN CORPUSCULAR HEMOGLOBIN 32.4 pg (27.0-33.0); MEAN CORPUSCULAR VOLUME 101.3 fl (80.0-96.0); PLATELET COUNT, AUTOMATED 230 10^3/uL (150-450); RED BLOOD COUNT 3.18 10^6/uL (4.30-6.10); WHITE BLOOD COUNT 7.7 10^3/uL (4.0-10.0)
[2021-11-11 07:26] LABS: CALCIUM LEVEL 8.2 MG/DL (8.8-10.2); CREATININE FOR GFR 1.45 MG/DL (0.70-1.30); DIGOXIN LEVEL 0.5 NG/ML (0.5-2.0); GLOMERULAR FILTRATION RATE 49.9 (>35); MAGNESIUM LEVEL 2.1 MG/DL (1.8-2.4); POTASSIUM SERUM 4.1 MEQ/L (3.5-5.1)
[2021-11-11 07:33] LABS: ATYPICAL LYMPH 5 % (0-5); EOSINOPHILS 1 % (0-3); LYMPHOCYTES 7 % (16-44); METAMYELOCYTES 1 % (0-0); MONOCYTES 6 % (0-5); MYELOCYTES 1 % (0-0); NEUTROPHILS 71 % (28-66)
[2021-11-11 07:35] LABS: PLATELET ESTIMATE NORMAL (NORMAL)
[2021-11-11] MEDS: SIMETHICONE 80MG CHEW TAB PO SCH ×4 (08:39→19:48)
[2021-11-11] MEDS: BISACODYL 10 MG SUPP PR SCH ×2 (08:41→19:55)
[2021-11-11] MEDS: PANTOPRAZOLE 40MG TAB (PROTONIX) PO SCH ×2 (08:41→19:47)
[2021-11-11] MEDS: ACETAMINOPHEN TAB 650MG DOSE (2X325MG) PO PRN ×3 (08:41→19:48)
[2021-11-11] MEDS: HEPARIN SOD (PORCINE) 5000UNITS/ML 1ML VIAL/SYRINGE SQ SCH ×2 (08:42→19:49)
[2021-11-11] MEDS: ANALGESIC BALM CRM 3OZ TOP SCH ×4 (08:43→19:55)
[2021-11-11] MEDS: **NOTE PATIENT COMMENT** MISC XX SCH (08:58)
[2021-11-11] MEDS: AMOXICILLIN 500 MG CAP PO SCH ×3 (10:00→19:48)
[2021-11-11] MEDS: LIDOCAINE 5% (LIDODERM) PATCH TD SCH (19:52)
[2021-11-11] MEDS: RAMELTEON 8 MG TAB (ROZEREM) PO SCH (21:04)
[2021-11-12 00:26] VITALS: BP 136/71
[2021-11-12 04:02] VITALS: BP 124/68
[2021-11-12 06:09] LABS: HEMATOCRIT 31.3 % (42.0-52.0); HEMOGLOBIN 10.2 g/dl (13.5-17.5); MEAN CORPUSCULAR HEMOGLOBIN 32.7 pg (27.0-33.0); MEAN CORPUSCULAR HGB CONC 32.6 g/dl (32.0-36.5); MEAN CORPUSCULAR VOLUME 100.3 fl (80.0-96.0); PLATELET COUNT, AUTOMATED 226 10^3/uL (150-450); RED BLOOD COUNT 3.12 10^6/uL (4.30-6.10); WHITE BLOOD COUNT 9.5 10^3/uL (4.0-10.0)
[2021-11-12 06:46] VITALS: BP 124/68
[2021-11-12 06:47] LABS: CALCIUM LEVEL 7.8 MG/DL (8.8-10.2); CREATININE FOR GFR 1.4 MG/DL (0.70-1.30); DIGOXIN LEVEL 0.5 NG/ML (0.5-2.0); GLOMERULAR FILTRATION RATE 51.9 (>35); MAGNESIUM LEVEL 1.9 MG/DL (1.8-2.4); POTASSIUM SERUM 3.9 MEQ/L (3.5-5.1)
[2021-11-12 08:02] LABS: ATYPICAL LYMPH 2 % (0-5); BLAST CELLS 1 % (0-0); EOSINOPHILS 2 % (0-3); LYMPHOCYTES 6 % (16-44); METAMYELOCYTES 2 % (0-0); MONOCYTES 8 % (0-5); MYELOCYTES 1 % (0-0); NEUTROPHILS 76 % (28-66); NUCLEATED RED BLOOD CELL 1 % (0-0)
[2021-11-12 08:06] LABS: PLATELET ESTIMATE NORMAL (NORMAL)
[2021-11-12] MEDS: PANTOPRAZOLE 40MG TAB (PROTONIX) PO SCH ×2 (08:39→19:53)
[2021-11-12] MEDS: AMOXICILLIN 500 MG CAP PO SCH ×3 (08:39→19:53)
[2021-11-12] MEDS: SIMETHICONE 80MG CHEW TAB PO SCH ×4 (08:40→19:54)
[2021-11-12] MEDS: HEPARIN SOD (PORCINE) 5000UNITS/ML 1ML VIAL/SYRINGE SQ SCH ×2 (08:40→19:55)
[2021-11-12] MEDS: **NOTE PATIENT COMMENT** MISC XX SCH (08:41)
[2021-11-12] MEDS: ANALGESIC BALM CRM 3OZ TOP SCH ×4 (08:41→19:58)
[2021-11-12] MEDS: BISACODYL 10 MG SUPP PR SCH (08:50)
[2021-11-12 08:51] VITALS: BP 128/71
[2021-11-12] MEDS: predniSONE 20 MG TAB PO SCH (12:48)
[2021-11-12 14:45] VITALS: BP 122/74
[2021-11-12] MEDS: RAMELTEON 8 MG TAB (ROZEREM) PO SCH (19:53)
[2021-11-12] MEDS: ACETAMINOPHEN TAB 650MG DOSE (2X325MG) PO PRN (19:55)
[2021-11-12] MEDS: LIDOCAINE 5% (LIDODERM) PATCH TD SCH (19:55)
[2021-11-13 06:00] VITALS: BP 134/73
[2021-11-13] MEDS: **NOTE PATIENT COMMENT** MISC XX SCH (09:00)
[2021-11-13] MEDS: ANALGESIC BALM CRM 3OZ TOP SCH ×4 (09:00→20:33)
[2021-11-13] MEDS: predniSONE 20 MG TAB PO SCH (09:24)
[2021-11-13] MEDS: AMOXICILLIN 500 MG CAP PO SCH ×3 (09:24→20:31)
[2021-11-13] MEDS: PANTOPRAZOLE 40MG TAB (PROTONIX) PO SCH ×2 (09:24→20:31)
[2021-11-13] MEDS: SIMETHICONE 80MG CHEW TAB PO SCH ×4 (09:24→20:32)
[2021-11-13] MEDS: HEPARIN SOD (PORCINE) 5000UNITS/ML 1ML VIAL/SYRINGE SQ SCH ×2 (09:25→20:32)
[2021-11-13] MEDS: LIDOCAINE 5% (LIDODERM) PATCH TD SCH (20:30)
[2021-11-13] MEDS: ACETAMINOPHEN TAB 650MG DOSE (2X325MG) PO PRN (20:31)
[2021-11-13] MEDS: RAMELTEON 8 MG TAB (ROZEREM) PO SCH (20:32)
[2021-11-14 06:00] VITALS: BP 147/88
[2021-11-14] MEDS: **NOTE PATIENT COMMENT** MISC XX SCH (08:13)
[2021-11-14] MEDS: ANALGESIC BALM CRM 3OZ TOP SCH ×4 (09:48→20:03)
[2021-11-14] MEDS: PANTOPRAZOLE 40MG TAB (PROTONIX) PO SCH ×2 (09:48→20:02)
[2021-11-14] MEDS: predniSONE 20 MG TAB PO SCH (09:48)
[2021-11-14] MEDS: HEPARIN SOD (PORCINE) 5000UNITS/ML 1ML VIAL/SYRINGE SQ SCH ×2 (09:48→20:01)
[2021-11-14] MEDS: SIMETHICONE 80MG CHEW TAB PO SCH ×4 (09:48→20:01)
[2021-11-14] MEDS: AMOXICILLIN 500 MG CAP PO SCH ×3 (09:48→20:01)
[2021-11-14] MEDS: LIDOCAINE 5% (LIDODERM) PATCH TD SCH (20:01)
[2021-11-14] MEDS: RAMELTEON 8 MG TAB (ROZEREM) PO SCH (20:01)
[2021-11-14] MEDS: ACETAMINOPHEN TAB 650MG DOSE (2X325MG) PO PRN (20:02)
[2021-11-15 06:00] VITALS: BP 121/70
[2021-11-15] MEDS: PANTOPRAZOLE 40MG TAB (PROTONIX) PO SCH ×2 (08:07→20:31)
[2021-11-15] MEDS: HEPARIN SOD (PORCINE) 5000UNITS/ML 1ML VIAL/SYRINGE SQ SCH ×2 (08:07→20:32)
[2021-11-15] MEDS: SIMETHICONE 80MG CHEW TAB PO SCH ×4 (08:07→20:31)
[2021-11-15] MEDS: predniSONE 10 MG TAB PO SCH (08:07)
[2021-11-15] MEDS: ACETAMINOPHEN TAB 650MG DOSE (2X325MG) PO PRN (08:08)
[2021-11-15] MEDS: **NOTE PATIENT COMMENT** MISC XX SCH (08:08)
[2021-11-15] MEDS: ANALGESIC BALM CRM 3OZ TOP SCH ×4 (08:08→21:00)
[2021-11-15 19:14] LABS: C REACTIVE PROTEIN QUANTITATIV 1.41 MG/DL (0.00-0.30); CALCIUM LEVEL 8.1 MG/DL (8.8-10.2); CREATININE FOR GFR 1.43 MG/DL (0.70-1.30); GLOMERULAR FILTRATION RATE 50.7 (>35); POTASSIUM SERUM 4.3 MEQ/L (3.5-5.1); URIC ACID 4.5 MG/DL (3.5-7.2)
[2021-11-15] MEDS: RAMELTEON 8 MG TAB (ROZEREM) PO SCH (20:31)
[2021-11-15] MEDS: LIDOCAINE 5% (LIDODERM) PATCH TD SCH (21:00)
[2021-11-16 03:27] VITALS: BP 166/80
[2021-11-16 03:41] VITALS: BP 148/74
[2021-11-16 05:56] LABS: BASO % 0.2 % (0.0-1.0); EOS # 0.1 10^3/uL (0.0-0.5); EOS % 0.6 % (0.0-3.0); HEMOGLOBIN 9.7 g/dl (13.5-17.5); LYMPH # 1.5 10^3/uL (1.5-5.0); LYMPH % 17.3 % (24.0-44.0); MEAN CORPUSCULAR HEMOGLOBIN 32.6 pg (27.0-33.0); MEAN CORPUSCULAR HGB CONC 31.3 g/dl (32.0-36.5); MONO # 0.9 10^3/uL (0.0-0.8); MONO % 9.7 % (2.0-8.0); NEUTROPHILS # 6.1 10^3/uL (1.5-8.5); NEUTROPHILS % 69.7 % (36.0-66.0); PLATELET COUNT, AUTOMATED 232 10^3/uL (150-450); RED BLOOD COUNT 2.98 10^6/uL (4.30-6.10); WHITE BLOOD COUNT 8.8 10^3/uL (4.0-10.0)
[2021-11-16] MEDS: predniSONE 10 MG TAB PO SCH (08:59)
[2021-11-16] MEDS: PANTOPRAZOLE 40MG TAB (PROTONIX) PO SCH ×2 (08:59→20:31)
[2021-11-16] MEDS: SIMETHICONE 80MG CHEW TAB PO SCH ×4 (08:59→20:31)
[2021-11-16] MEDS: **NOTE PATIENT COMMENT** MISC XX SCH (09:00)
[2021-11-16] MEDS: HEPARIN SOD (PORCINE) 5000UNITS/ML 1ML VIAL/SYRINGE SQ SCH ×2 (09:02→20:32)
[2021-11-16] MEDS: ANALGESIC BALM CRM 3OZ TOP SCH ×4 (09:02→21:00)
[2021-11-16] MEDS ORDERED: FUROSEMIDE 20 MG TAB PO ONE (15:30)
[2021-11-16] MEDS: RAMELTEON 8 MG TAB (ROZEREM) PO SCH (20:31)
[2021-11-16] MEDS: LIDOCAINE 5% (LIDODERM) PATCH TD SCH (21:00)
[2021-11-17 04:54] VITALS: BP 140/69
[2021-11-17] MEDS: **NOTE PATIENT COMMENT** MISC XX SCH (09:00)
[2021-11-17] MEDS: PANTOPRAZOLE 40MG TAB (PROTONIX) PO SCH ×2 (09:08→21:03)
[2021-11-17] MEDS: HEPARIN SOD (PORCINE) 5000UNITS/ML 1ML VIAL/SYRINGE SQ SCH ×2 (09:08→21:03)
[2021-11-17] MEDS: SIMETHICONE 80MG CHEW TAB PO SCH ×4 (09:08→21:03)
[2021-11-17] MEDS: predniSONE 10 MG TAB PO SCH (09:08)
[2021-11-17] MEDS: ANALGESIC BALM CRM 3OZ TOP SCH ×4 (09:09→21:03)
[2021-11-17] MEDS: LIDOCAINE 5% (LIDODERM) PATCH TD SCH (21:03)
[2021-11-17] MEDS: RAMELTEON 8 MG TAB (ROZEREM) PO SCH (21:03)
[2021-11-18 03:27] VITALS: BP 158/61
[2021-11-18] MEDS: **NOTE PATIENT COMMENT** MISC XX SCH (09:00)
[2021-11-18] MEDS: PANTOPRAZOLE 40MG TAB (PROTONIX) PO SCH ×2 (09:07→20:49)
[2021-11-18] MEDS: HEPARIN SOD (PORCINE) 5000UNITS/ML 1ML VIAL/SYRINGE SQ SCH ×2 (09:07→20:50)
[2021-11-18] MEDS: SIMETHICONE 80MG CHEW TAB PO SCH ×4 (09:07→20:49)
[2021-11-18] MEDS: ANALGESIC BALM CRM 3OZ TOP SCH ×4 (09:28→20:50)
[2021-11-18] MEDS: RAMELTEON 8 MG TAB (ROZEREM) PO SCH (20:49)
[2021-11-18] MEDS: ACETAMINOPHEN TAB 650MG DOSE (2X325MG) PO PRN (20:50)
[2021-11-18] MEDS: LIDOCAINE 5% (LIDODERM) PATCH TD SCH (21:00)
[2021-11-19 06:00] VITALS: BP 142/84
[2021-11-19] MEDS: **NOTE PATIENT COMMENT** MISC XX SCH (09:39)
[2021-11-19] MEDS: ANALGESIC BALM CRM 3OZ TOP SCH ×4 (09:39→22:00)
[2021-11-19] MEDS: HEPARIN SOD (PORCINE) 5000UNITS/ML 1ML VIAL/SYRINGE SQ SCH ×2 (09:40→20:10)
[2021-11-19] MEDS: SIMETHICONE 80MG CHEW TAB PO SCH ×4 (09:40→20:09)
[2021-11-19] MEDS: PANTOPRAZOLE 40MG TAB (PROTONIX) PO SCH ×2 (09:40→20:09)
[2021-11-19] MEDS: ACETAMINOPHEN TAB 650MG DOSE (2X325MG) PO PRN (20:09)
[2021-11-19] MEDS: LIDOCAINE 5% (LIDODERM) PATCH TD SCH (21:00)
[2021-11-19] MEDS: RAMELTEON 8 MG TAB (ROZEREM) PO SCH (21:59)
[2021-11-20 06:00] VITALS: BP 131/63
[2021-11-20] MEDS: **NOTE PATIENT COMMENT** MISC XX SCH (09:00)
[2021-11-20] MEDS ORDERED: SIME80TA16 PO (09:09)
[2021-11-20] MEDS ORDERED: LIDO5TD TD (09:09)
[2021-11-20] MEDS ORDERED: PANT40TA29 PO (09:09)
[2021-11-20] MEDS ORDERED: RAME8TAB2 PO (09:09)
[2021-11-20] MEDS: PANTOPRAZOLE 40MG TAB (PROTONIX) PO SCH (09:42)
[2021-11-20] MEDS: SIMETHICONE 80MG CHEW TAB PO SCH ×3 (09:43→17:00)
[2021-11-20] MEDS: ANALGESIC BALM CRM 3OZ TOP SCH ×3 (09:43→17:00)
[2021-11-20] MEDS: HEPARIN SOD (PORCINE) 5000UNITS/ML 1ML VIAL/SYRINGE SQ SCH (09:43)
== END 2021-11-20 18:20 | disposition home health service (06) | DRG 871 ==
LOC: M ED 13:26 → M ED INP 18:14 → ENRESERV 19:08 → M MSPAV 20:08 → UNDODISIN 11-05 13:10 → M PCU 11-05 13:10 → M MS5PR 11-12 14:40
PROVIDERS: ADMIT General Practice; ATTEND General Practice
DX: A40.9 Streptococcal sepsis, unspecified (principal); G93.41 Metabolic encephalopathy; J96.01 Acute respiratory failure with hypoxia; N17.9 Acute kidney failure, unspecified; M62.82 Rhabdomyolysis; L03.115 Cellulitis of right lower limb; F10.139 Alcohol abuse with withdrawal, unspecified; K56.7 Ileus, unspecified; I50.32 Chronic diastolic (congestive) heart failure; R04.2 Hemoptysis; J81.1 Chronic pulmonary edema; E66.9 Obesity, unspecified; I11.0 Hypertensive heart disease with heart failure; R53.1 Weakness; R65.20 Severe sepsis without septic shock; R41.82 Altered mental status, unspecified; M48.061 Spinal stenosis, lumbar region without neurogenic claudication; E11.22 Type 2 diabetes mellitus with diabetic chronic kidney disease; M11.871 Other specified crystal arthropathies, right ankle and foot; N18.30 Chronic kidney disease, stage 3 unspecified; I48.91 Unspecified atrial fibrillation; M51.26 Other intervertebral disc displacement, lumbar region; D64.9 Anemia, unspecified; K29.70 Gastritis, unspecified, without bleeding; Z79.899 Other long term (current) drug therapy; Z68.31 Body mass index [BMI] 31.0-31.9, adult

== ENCOUNTER → 2021-12-03 | Outpatient (REF) | payer MEDICARE ==
[~2021-12-03] MED LIST: AMLO1TAB25 PO; LIDO5TD TD; LOVA20TA2 PO; PANT40TA29 PO; RAME8TAB2 PO; SIME80TA16 PO; pt comment
[2021-12-03 19:10] LABS: ALBUMIN 2.9 GM/DL (3.2-5.2); BILIRUBIN,TOTAL 1.8 MG/DL (0.2-1.0); CALCIUM LEVEL 8.7 MG/DL (8.8-10.2); CHOLESTEROL RISK RATIO 4.068 (<5); CREATININE FOR GFR 1.46 MG/DL (0.70-1.30); GLOMERULAR FILTRATION RATE 49.5 (>35); PERCENT SATURATION 18.2 % (19.7-50.0); POTASSIUM SERUM 4.4 MEQ/L (3.5-5.1); THYROID STIMULATING HORMONE 1.5 uIU/ML (0.358-3.740); TOTAL PROTEIN 8.1 GM/DL (6.4-8.2)
[2021-12-03 19:13] LABS: BASO % 0.5 % (0.0-1.0); EOS # 0.1 10^3/uL (0.0-0.5); EOS % 2.4 % (0.0-3.0); HEMATOCRIT 37.9 % (42.0-52.0); HEMOGLOBIN 12.2 g/dl (13.5-17.5); LYMPH # 1.7 10^3/uL (1.5-5.0); LYMPH % 29.9 % (24.0-44.0); MEAN CORPUSCULAR HGB CONC 32.2 g/dl (32.0-36.5); MEAN CORPUSCULAR VOLUME 96.4 fl (80.0-96.0); MONO # 0.4 10^3/uL (0.0-0.8); NEUTROPHILS # 3.5 10^3/uL (1.5-8.5); NEUTROPHILS % 59.7 % (36.0-66.0); PLATELET COUNT, AUTOMATED 268 10^3/uL (150-450); RED BLOOD COUNT 3.93 10^6/uL (4.30-6.10); WHITE BLOOD COUNT 5.8 10^3/uL (4.0-10.0)
[2021-12-03 19:28] LABS: HEMOGLOBIN A1c 5.5 %
== END ==
LOC: M LAB REF 16:30
PROVIDERS: ATTEND Family Medicine Addiction Medicine
DX: E11.65 Type 2 diabetes mellitus with hyperglycemia (principal)

== ENCOUNTER → 2022-01-06 | Outpatient (REF) | payer MEDICARE ==
[2022-01-06 16:53] LABS: BASO % 0.5 % (0.0-1.0); EOS # 0.2 10^3/uL (0.0-0.5); EOS % 2.5 % (0.0-3.0); HEMATOCRIT 34.3 % (42.0-52.0); HEMOGLOBIN 10.5 g/dl (13.5-17.5); LYMPH # 2.3 10^3/uL (1.5-5.0); LYMPH % 36.1 % (24.0-44.0); MEAN CORPUSCULAR HEMOGLOBIN 30.3 pg (27.0-33.0); MEAN CORPUSCULAR HGB CONC 30.6 g/dl (32.0-36.5); MEAN CORPUSCULAR VOLUME 99.1 fl (80.0-96.0); MONO # 0.5 10^3/uL (0.0-0.8); MONO % 7.6 % (2.0-8.0); NEUTROPHILS # 3.3 10^3/uL (1.5-8.5); PLATELET COUNT, AUTOMATED 224 10^3/uL (150-450); RED BLOOD COUNT 3.46 10^6/uL (4.30-6.10); WHITE BLOOD COUNT 6.3 10^3/uL (4.0-10.0)
[2022-01-06 18:05] LABS: TOTAL IRON BINDING CAPACITY 244 UG/DL (250-425)
[2022-01-06 18:07] LABS: IRON (FE) 54 UG/DL (65-175); PERCENT SATURATION 22.1 % (19.7-50.0)
[2022-01-06 18:24] LABS: ALBUMIN 3.3 G/DL (3.2-5.2); ALKALINE PHOSPHATASE 88 U/L (46-116); ALT/SGPT < 9 U/L (7.0-40); AST/SGOT 11 U/L (<34); BILIRUBIN,TOTAL 1.1 MG/DL (0.3-1.2); BLOOD UREA NITROGEN 22 MG/DL (9-23); CARBON DIOXIDE LEVEL 24 MMOL/L (20-31); CHLORIDE LEVEL 107 MMOL/L (98-107); CHOLESTEROL LEVEL 127 MG/DL (<200); CHOLESTEROL RISK RATIO 3.38 (<5); CREATININE FOR GFR 1.15 MG/DL (0.70-1.30); GLOMERULAR FILTRATION RATE > 60.0 (>35); GLUCOSE, FASTING 103 MG/DL (74-106); HDL CHOLESTEROL 37.5 MG/DL (>40); LDL CHOLESTEROL 76.1 MG/DL (<100); NON-HDL-C 90 MG/DL; POTASSIUM SERUM 4.4 MMOL/L (3.5-5.1); SODIUM LEVEL 142 MMOL/L (136-145); THYROID STIMULATING HORMONE 1.575 uIU/ML (0.55-4.78); TOTAL PROTEIN 7.4 G/DL (5.7-8.2); TRIGLYCERIDES LEVEL 67 MG/DL (<150)
[2022-01-06 19:33] LABS: HEMOGLOBIN A1c 4.7 % (4.0-6.0)
== END ==
LOC: M LAB REF 16:28
PROVIDERS: ATTEND Family Medicine Addiction Medicine
DX: E11.65 Type 2 diabetes mellitus with hyperglycemia (principal); D50.9 Iron deficiency anemia, unspecified

== ENCOUNTER 2022-01-08 18:22 | Emergency (ER) | payer MEDICARE ==
[~2022-01-08] VITALS: Ht 188 cm; Wt 95.5 kg
[2022-01-08 18:40] VITALS: BP 152/72
[2022-01-08] MEDS ORDERED: BACITRACIN OINTMENT 30GM TUBE TOP STA (18:58)
[2022-01-08] MEDS ORDERED: ACETAMINOPHEN 500 MG TAB PO ONE (19:00)
[2022-01-08] MEDS ORDERED: IBUPROFEN 800 MG TAB PO ONE (19:00)
[2022-01-08] MEDS ORDERED: BACI28.43 TOP (20:29)
[2022-01-08] MEDS ORDERED: DERMABOND TOPICAL SKIN ADHESIVE TOP ONE (20:30)
== END 2022-01-08 21:16 | disposition home or self-care (01) ==
LOC: EDBD 18:22 → M ED 18:22
DX: S80.211A Abrasion, right knee, initial encounter (principal); S80.212A Abrasion, left knee, initial encounter; S01.81XA Laceration without foreign body of other part of head, initial encounter; S81.812A Laceration without foreign body, left lower leg, initial encounter; W01.0XXA Fall on same level from slipping, tripping and stumbling without subsequent striking against object, initial encounter; Y92.481 Parking lot as the place of occurrence of the external cause; I10 Essential (primary) hypertension; Z79.899 Other long term (current) drug therapy

== ENCOUNTER → 2022-02-08 | Outpatient (REF) | payer MEDICARE ==
[~2022-02-08] MED LIST changes: +BACI28.43 TOP
[2022-02-08 18:34] LABS: ALBUMIN 3.4 G/DL (3.2-5.2); ALKALINE PHOSPHATASE 83 U/L (46-116); ALT/SGPT < 9 U/L (7.0-40); AST/SGOT 17 U/L (<34); BILIRUBIN,TOTAL 0.9 MG/DL (0.3-1.2); BLOOD UREA NITROGEN 22 MG/DL (9-23); CALCIUM LEVEL 8.8 MG/DL (8.3-10.6); CARBON DIOXIDE LEVEL 26 MMOL/L (20-31); CHLORIDE LEVEL 107 MMOL/L (98-107); CREATININE FOR GFR 1.25 MG/DL (0.70-1.30); GLOMERULAR FILTRATION RATE 59.2 (>35); GLUCOSE, FASTING 91 MG/DL (74-106); POTASSIUM SERUM 4.2 MMOL/L (3.5-5.1); SODIUM LEVEL 142 MMOL/L (136-145); TOTAL PROTEIN 7.3 G/DL (5.7-8.2)
== END ==
LOC: M LAB REF 17:33
PROVIDERS: ATTEND Nurse Practitioner Family
DX: R60.0 Localized edema (principal)

== ENCOUNTER 2022-02-13 10:53 | Inpatient (IN) | payer MEDICARE ==
[~2022-02-13] VITALS: Ht 188 cm; Wt 95.7 kg
[2022-02-13] MEDS ORDERED: CEPH500C PO (11:08)
[2022-02-13] MEDS ORDERED: IPRATROPIUM 0.5MG/ALBUTEROL 2.5MG INH SOL UD 3ML (DUONEB) NEB ONE (11:30)
[2022-02-13 11:46] LABS: VENOUS BASE EXCESS -2.5 (-2.0-2.0); VENOUS HCO3 23.3 MEQ/L (23.0-27.0); VENOUS O2 SATURATION 75.3 % (60.0-80.0); VENOUS PARTIAL PRESSURE O2 42.5 mmHg (30.0-50.0); VENOUS PH 7.342 UNITS (7.330-7.430); VENOUS STANDARD HCO3 21.9 MEQ/L; VENOUS TOTAL CO2 24.7 MEQ/L (24.0-28.0)
[2022-02-13 11:49] LABS: BASO % 0.6 % (0.0-1.0); EOS # 0.2 10^3/uL (0.0-0.5); HEMATOCRIT 38.7 % (42.0-52.0); HEMOGLOBIN 12.5 g/dl (13.5-17.5); LYMPH # 1.7 10^3/uL (1.5-5.0); LYMPH % 26.5 % (24.0-44.0); MEAN CORPUSCULAR HEMOGLOBIN 30.9 pg (27.0-33.0); MEAN CORPUSCULAR HGB CONC 32.3 g/dl (32.0-36.5); MEAN CORPUSCULAR VOLUME 95.6 fl (80.0-96.0); MONO # 0.5 10^3/uL (0.0-0.8); MONO % 7.5 % (2.0-8.0); NEUTROPHILS % 61.9 % (36.0-66.0); PLATELET COUNT, AUTOMATED 223 10^3/uL (150-450); RED BLOOD COUNT 4.05 10^6/uL (4.30-6.10); WHITE BLOOD COUNT 6.4 10^3/uL (4.0-10.0)
[2022-02-13 12:23] LABS: CK-MB VALUE MASS 1.4 NG/ML (<3.6)
[2022-02-13 12:25] LABS: MB/CK RELATIVE INDEX 2.69 (< OR =4)
[2022-02-13 12:25] LABS: BILIRUBIN,DIRECT 0.5 MG/DL (<0.4)
[2022-02-13 12:26] LABS: ALBUMIN 3.8 G/DL (3.2-5.2); ALKALINE PHOSPHATASE 96 U/L (46-116); ALT/SGPT < 9 U/L (7.0-40); AST/SGOT 20 U/L (<34); BILIRUBIN,TOTAL 1.3 MG/DL (0.3-1.2); BLOOD UREA NITROGEN 24 MG/DL (9-23); CALCIUM LEVEL 9.1 MG/DL (8.3-10.6); CARBON DIOXIDE LEVEL 23 MMOL/L (20-31); CHLORIDE LEVEL 105 MMOL/L (98-107); CREATININE FOR GFR 1.22 MG/DL (0.70-1.30); GLOMERULAR FILTRATION RATE > 60.0 (>35); GLUCOSE, FASTING 113 MG/DL (74-106); POTASSIUM SERUM 4.6 MMOL/L (3.5-5.1); SODIUM LEVEL 138 MMOL/L (136-145); TOTAL PROTEIN 8.1 G/DL (5.7-8.2)
[2022-02-13 12:28] LABS: THYROID STIMULATING HORMONE 1.867 uIU/ML (0.55-4.78)
[2022-02-13] MEDS ORDERED: FUROSEMIDE 40MG/4ML VIAL IV ONE (12:50)
[2022-02-13 13:07] LABS: MB/CK RELATIVE INDEX 1.96 (< OR =4)
[2022-02-13] MEDS ORDERED: FUROSEMIDE injection 250 MG in D5W 225 ML IV SCH (14:00)
[2022-02-13 14:22] LABS: CK-MB VALUE MASS 1.1 NG/ML (<3.6)
[2022-02-13] MEDS ORDERED: HOME MED LIST COMPLETE! XX SCH (14:40)
[2022-02-13 18:45] LABS: MB/CK RELATIVE INDEX 2.04 (< OR =4)
[2022-02-13] MEDS: APIXABAN 5 MG TAB (ELIQUIS) PO SCH (23:43)
[2022-02-13 23:54] LABS: CK-MB VALUE MASS < 1.0 NG/ML (<3.6)
[2022-02-13 23:56] LABS: CPK CREATINE PHOSPHOKINASE 56 U/L (46-171); MB/CK RELATIVE INDEX 1.78 (< OR =4)
[2022-02-14 07:13] LABS: HEMOGLOBIN 12.1 g/dl (13.5-17.5); MEAN CORPUSCULAR HEMOGLOBIN 30.6 pg (27.0-33.0); MEAN CORPUSCULAR HGB CONC 31.8 g/dl (32.0-36.5); PLATELET COUNT, AUTOMATED 219 10^3/uL (150-450); RED BLOOD COUNT 3.96 10^6/uL (4.30-6.10); WHITE BLOOD COUNT 6.4 10^3/uL (4.0-10.0)
[2022-02-14 07:36] LABS: MAGNESIUM LEVEL 1.7 MG/DL (1.8-2.4)
[2022-02-14 07:37] LABS: CALCIUM LEVEL 9.1 MG/DL (8.3-10.6); CREATININE FOR GFR 1.37 MG/DL (0.70-1.30); GLOMERULAR FILTRATION RATE 53.2 (>35); POTASSIUM SERUM 4.1 MMOL/L (3.5-5.1)
[2022-02-14] MEDS ORDERED: POTASSIUM CHLORIDE 10MEQ SR TABLET PO ONE (08:00)
[2022-02-14] MEDS ORDERED: MAG SULF 1GM/100ML (MAG RUN) 1 GM in IV 1 EA IV ONE (08:00)
[2022-02-14] MEDS: CEPHALEXIN 500 MG CAP PO SCH ×3 (09:38→19:51)
[2022-02-14] MEDS: APIXABAN 5 MG TAB (ELIQUIS) PO SCH ×2 (09:38→20:08)
[2022-02-14] MEDS ORDERED: LORazepam 2 MG TAB PO PRN (11:00)
[2022-02-14] MEDS ORDERED: THIAMINE 100 MG TAB PO ONE (11:30)
[2022-02-14] MEDS ORDERED: FOLIC ACID 1MG TAB PO ONE (11:30)
[2022-02-14] MEDS ORDERED: MULTIVITAMINS/MINERALS THERAP 1 TAB PO ONE (11:30)
[2022-02-14] MEDS: FUROSEMIDE 40MG/4ML VIAL IV SCH (14:43)
[2022-02-14 17:03] LABS: MAGNESIUM LEVEL 1.9 MG/DL (1.8-2.4)
[2022-02-14 17:05] LABS: CALCIUM LEVEL 8.9 MG/DL (8.3-10.6); CREATININE FOR GFR 1.44 MG/DL (0.70-1.30); GLOMERULAR FILTRATION RATE 50.2 (>35)
[2022-02-14 18:35] VITALS: BP 135/84
[2022-02-14] MEDS ORDERED: SIMVASTATIN 20 MG TAB PO SCH (21:00)
[2022-02-14 22:00] VITALS: BP 142/85
[2022-02-15] MEDS: CEPHALEXIN 500 MG CAP PO SCH ×3 (00:45→12:45)
[2022-02-15 01:00] VITALS: BP 127/79
[2022-02-15 05:30] LABS: HEMATOCRIT 38.1 % (42.0-52.0); HEMOGLOBIN 12.4 g/dl (13.5-17.5); MEAN CORPUSCULAR HEMOGLOBIN 30.8 pg (27.0-33.0); MEAN CORPUSCULAR HGB CONC 32.5 g/dl (32.0-36.5); MEAN CORPUSCULAR VOLUME 94.8 fl (80.0-96.0); PLATELET COUNT, AUTOMATED 212 10^3/uL (150-450); RED BLOOD COUNT 4.02 10^6/uL (4.30-6.10); WHITE BLOOD COUNT 7.6 10^3/uL (4.0-10.0)
[2022-02-15 05:53] LABS: MAGNESIUM LEVEL 1.9 MG/DL (1.8-2.4)
[2022-02-15 05:55] LABS: CREATININE FOR GFR 1.34 MG/DL (0.70-1.30); GLOMERULAR FILTRATION RATE 54.6 (>35); POTASSIUM SERUM 3.5 MMOL/L (3.5-5.1)
[2022-02-15 06:00] VITALS: BP 114/66
[2022-02-15] MEDS: APIXABAN 5 MG TAB (ELIQUIS) PO SCH (08:46)
[2022-02-15] MEDS: FUROSEMIDE 40MG/4ML VIAL IV SCH (08:47)
[2022-02-15] MEDS ORDERED: FOLIC ACID 1MG TAB PO SCH (09:00)
[2022-02-15] MEDS ORDERED: THIAMINE 100 MG TAB PO SCH (09:00)
[2022-02-15] MEDS ORDERED: MULTIVITAMINS/MINERALS THERAP 1 TAB PO SCH (09:00)
[2022-02-15] MEDS ORDERED: LASI20TA3 PO (09:35)
[2022-02-15] MEDS ORDERED: POTA10CA33 PO (09:35)
[2022-02-15] MEDS ORDERED: ELIQ5TAB PO (09:35)
[2022-02-15] MEDS ORDERED: LIDO4CRE4 TOP (09:35)
[2022-02-15] MEDS ORDERED: ACET-897 PO (09:35)
[2022-02-15] MEDS ORDERED: AMLO1TAB24 PO (09:41)
== END 2022-02-15 13:31 | disposition home or self-care (01) | DRG 291 ==
LOC: M ED 11:47 → M ED INP 13:04 → CANRESERV 02-14 13:13 → ENRESERV 02-14 13:13 → M MSPAV 02-14 18:33
PROVIDERS: ADMIT General Practice; ATTEND Internal Medicine Nephrology
DX: I13.0 Hypertensive heart and chronic kidney disease with heart failure and stage 1 through stage 4 chronic kidney disease, or unspecified chronic kidney disease (principal); I50.33 Acute on chronic diastolic (congestive) heart failure; I48.20 Chronic atrial fibrillation, unspecified; N17.9 Acute kidney failure, unspecified; N18.30 Chronic kidney disease, stage 3 unspecified; E11.22 Type 2 diabetes mellitus with diabetic chronic kidney disease; E78.5 Hyperlipidemia, unspecified; F10.10 Alcohol abuse, uncomplicated; R53.81 Other malaise; R29.6 Repeated falls; M48.00 Spinal stenosis, site unspecified; M54.50 Low back pain, unspecified; G89.29 Other chronic pain; R26.89 Other abnormalities of gait and mobility; Z79.899 Other long term (current) drug therapy

== ENCOUNTER 2022-10-22 17:53 | Emergency (ER) | payer MEDICARE ==
[~2022-10-22] VITALS: Ht 188 cm; Wt 102.9 kg
[~2022-10-22 17:53] MED LIST changes: +ACET-897 PO; +AMLO1TAB24 PO; +BACI28.417 TOP; -BACI28.43 TOP; +CEPH500C PO; +ELIQ5TAB PO; +LASI20TA3 PO; +LIDO4CRE4 TOP; +POTA10CA60 PO
[2022-10-22 19:41] LABS: BASO % 0.2 % (0.0-1.0); EOS % 0.1 % (0.0-3.0); HEMOGLOBIN 12.8 g/dl (13.5-17.5); LYMPH # 1.5 10^3/uL (1.5-5.0); LYMPH % 9.3 % (24.0-44.0); MEAN CORPUSCULAR HEMOGLOBIN 33.2 pg (27.0-33.0); MEAN CORPUSCULAR HGB CONC 33.7 g/dl (32.0-36.5); MEAN CORPUSCULAR VOLUME 98.7 fl (80.0-96.0); MONO # 0.9 10^3/uL (0.0-0.8); MONO % 5.8 % (2.0-8.0); NEUTROPHILS # 13.1 10^3/uL (1.5-8.5); NEUTROPHILS % 83.9 % (36.0-66.0); PLATELET COUNT, AUTOMATED 151 10^3/uL (150-450); RED BLOOD COUNT 3.85 10^6/uL (4.30-6.10); WHITE BLOOD COUNT 15.6 10^3/uL (4.0-10.0)
[2022-10-22 19:55] LABS: ERYTHROCYTE SEDIMENTATION RATE 48 mm/hr (0-20)
[2022-10-22 20:03] LABS: C REACTIVE PROTEIN QUANTITATIV 19.4 MG/DL (<1.0); CK-MB VALUE MASS 1.3 NG/ML (<3.6)
[2022-10-22 20:04] LABS: MB/CK RELATIVE INDEX 1.22 (< OR =4)
[2022-10-22 20:13] LABS: RSV AMPLIFICATION NEGATIVE (NEGATIVE)
[2022-10-22 20:55] VITALS: BP 133/74; TEMP 100.4; O2SAT 98
[2022-10-22] MEDS ORDERED: cefTRIAXone SOD 1 GM in D5W MINI-BAG PLUS 50 ML IV ONE (21:10)
[2022-10-22] MEDS ORDERED: ACETAMINOPHEN 500 MG TAB PO ONE (21:10)
[2022-10-22] MEDS ORDERED: CEPH500T PO (21:20)
[2022-10-23] MEDS ORDERED: FURO20TA2 PO (17:52)
[2022-10-23] MEDS ORDERED: AMLO1TAB25 PO (17:52)
== END 2022-10-22 22:49 | disposition left against medical advice (07) ==
LOC: M ED 17:53
DX: L03.116 Cellulitis of left lower limb (principal); N17.9 Acute kidney failure, unspecified; I49.1 Atrial premature depolarization; I44.4 Left anterior fascicular block; I45.10 Unspecified right bundle-branch block; E11.9 Type 2 diabetes mellitus without complications; I10 Essential (primary) hypertension; F10.10 Alcohol abuse, uncomplicated; Z86.79 Personal history of other diseases of the circulatory system; Z79.899 Other long term (current) drug therapy; Z53.9 Procedure and treatment not carried out, unspecified reason
CPT/HCPCS: 71045; 80047; 82550; 82553; 83605; 83880; 84484; 85025; 85652; 86140; 87631; 93005; 93971; 96365; 99284; J0696